=== PATIENT | female | born 1985 | race Caucasian/White ===

== ENCOUNTER → 2017-02-17 | Outpatient (CLI) | payer OTHER | END | disposition home or self-care (01) | LOC: MW.LAB 15:53 | PROVIDERS: ATTEND Internal Medicine Endocrinology, Diabetes & Metabolism | DX: E05.00 Thyrotoxicosis with diffuse goiter without thyrotoxic crisis or storm (principal) | CPT/HCPCS: 36415; 84439; 84443; 84481 ==

== ENCOUNTER 2017-08-29 13:17 | Emergency (ER) | payer BC ==
[2017-08-29] MEDS ORDERED: Sodium Chloride 0.9% 2.5 ML Syringe FLUSH PRN (14:01)
[2017-08-29] MEDS ORDERED: Sodium Chloride 0.9% 10 ML Syringe FLUSH PRN (14:01)
--- NOTE | 2017-08-29 14:02 | EDM.PDOC ---
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 She has a wedding in [place] next month and does not want to take the radiation prior to leaving the [facility]. Review of Systems: As per history of present illness and below otherwise all systems reviewed and negative. Past medical history: As per history of present illness and as reviewed below otherwise noncontributory. Surgical history: As per history of present illness and as reviewed below otherwise noncontributory. Social history: No reported history of drug or alcohol abuse. Family history: As per history of present illness and as reviewed below otherwise noncontributory. Physical exam: Alert and oriented female who is somewhat anxious HEENT: Atraumatic, normocehpalic, pupils reactive, negative for conjunctival pallor or scleral icterus, mucous membranes moist, throat clear, neck supple, nontender, trachea midline. Lungs: Clear to auscultation, breath sounds equal bilaterally, chest non tender. Heart: S1S2, regular, negative for clicks, rubs, or JVD. Abdomen: Soft, nondistended, nontender. Negative for masses or hepatossplenmegaly. Negative for costovertebral tenderness. Pelvis: Stable nontender. Genitourinary: Deferred. Rectal: Deferred Extremities: Atraumatic, negative for cords or calf pain. Neurovascular unremarkable. Neuro: Awake, alert, oriented. Cranial nerves II through XII unremarkable. Cerebellum unremarkable. Motor and sensory unremarkable throughout. Exam nonfocal. Diagnostics: [EKG CBC CMP8] Therapeutics: [] Impression: [Hyperthyroid reaction] Plan: []Discharged home Contact her white metal caster Lorazepam prescription written 0.25 mg one 3 times a day when necessary #10 no refill Definitive disposition and diagnosis as appropriate pending reevaluation and review of above. 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: Other OB/BYN History: gestational DM Musculoskeletal History: Reports: None Neurological History: Reports: None Psychiatric History: Reports: None Endocrine/Metabolic History: Reports: Hyperthyroidism Other Endocrine/Metabolic History: previous hx graves disease Hematologic History: Reports: None Immunologic History: Reports: None Oncologic (Cancer) History: Reports: None Dermatologic History: Reports: None - Infectious Disease History Infectious Disease History: Reports: Chicken Pox - Past Surgical History Head Surgeries/Procedures: Reports: None HEENT Surgical History: Reports: Eye Surgery, Tonsillectomy Female Surgical History: Reports: Section, LEEP Social & Family History - Family History Family Medical History: Noncontributory - Tobacco Use Smoking Status *Q: Former Smoker Years of Tobacco use: 5 Packs/Tins Daily: 0.5 Used Tobacco, but Quit: Yes Month Tobacco Last Used: 06/2015 Second Hand Smoke Exposure: No - Caffeine Use Caffeine Use: Reports: Coffee, Energy Drinks Caffeine Use Comment: took 2 cups of coffee in the morning - Recreational Drug Use Recreational Drug Use: No Drug Use in Last 12 Months: No ED ROS GENERAL - Review of Systems Review Of Systems: ROS reveals no pertinent complaints other than HPI. ED EXAM, GENERAL - Physical Exam Exam: See Below (See dictation) Course - Vital Signs Last Recorded V/S: Last Vital Signs Temp 37.0 C 08/29/17 13:25 Pulse 110 H 08/29/17 16:03 Resp 18 08/29/17 16:03 BP 139/62 08/29/17 16:03 Pulse Ox 97 08/29/17 16:03 - Orders/Labs/Meds Orders: Active Orders 24 hr Category Date Time Status EKG Documentation Completion [RC] STAT Care 08/29/17 14:01 Active COMPREHENSIVE METABOLIC PN,CMP [CHEM] Stat Lab 08/29/17 14:13 Results TSH [CHEM] Stat Lab 08/29/17 14:13 Results Saline Lock Insert [OM.PC] Stat Oth 08/29/17 14:01 Ordered Labs: Laboratory Tests 08/29/17 08/29/17 Range/Units 14:13 14:13 WBC 7.75 (4.0-11.0) K/uL RBC 4.67 (4.30-5.90) M/uL Hgb 14.6 (12.0-16.0) g/dL Hct 42.4 (36.0-46.0) % MCV 90.8 (80.0-98.0) fL MCH 31.3 (27.0-32.0) pg MCHC 34.4 (31.0-37.0) g/dL RDW Std Deviation 39.9 (28.0-62.0) fl RDW Coeff of Ming 12 (11.0-15.0) % Plt Count 208 (150-400) K/uL MPV 10.00 (7.40-12.00) fL Neut % (Auto) 71.8 (48.0-80.0) % Lymph % (Auto) 19.0 (16.0-40.0) % [place] % (Auto) 8.5 (0.0-15.0) % Eos % (Auto) 0.6 (0.0-7.0) % Baso % (Auto) 0.1 (0.0-1.5) % Neut # (Auto) 5.6 (1.4-5.7) K/uL Lymph # (Auto) 1.5 (0.6-2.4) K/uL [place] # (Auto) 0.7 (0.0-0.8) K/uL Eos # (Auto) 0.1 (0.0-0.7) K/uL Baso # (Auto) 0.0 (0.0-0.1) K/uL Nucleated RBC % 0.0 /100WBC Nucleated RBCs # 0 K/uL Sodium 139 (136-146) mmol/L Potassium 3.7 (3.5-5.1) mmol/L Chloride 107 (98-110) mmol/L Carbon Dioxide 22 (21-31) mmol/L BUN 13 (6.0-23.0) mg/dL Creatinine 0.6 (0.6-1.5) mg/dL Est Cr Clr Drug Dosing 109.11 mL/min Estimated GFR (MDRD) > 60.0 ml/min Glucose 118 H (60-110) mg/dL Calcium 9.8 (8.8-10.8) mg/dL Total Bilirubin 0.5 (0.1-1.5) mg/dL AST 23 (5-40) IU/L ALT 53 (8-54) IU/L Alkaline Phosphatase 80 (40-150) Total Protein 7.6 (6.0-8.0) g/dL Albumin 4.2 (3.5-5.0) g/dL Globulin 3.4 (2.0-3.5) g/dL Albumin/Globulin Ratio 1.2 L (1.3-2.8) Meds: Medications Discontinued Medications Generic Name Dose Route Start Last Admin Trade Name Freq PRN Reason Stop Dose Admin Lorazepam 0.5 mg 08/29/17 14:04 08/29/17 14:19 Ativan PO 08/29/17 14:05 0.5 mg ONETIME ONE Administration Sodium Chloride 10 ml 08/29/17 14:01 08/29/17 14:19 Saline Flush FLUSH 10 ml ASDIRECTED PRN Administration Keep Vein Open Sodium Chloride 2.5 ml 08/29/17 14:01 08/29/17 14:20 Saline Flush FLUSH 2.5 ml ASDIRECTED PRN Administration Keep Vein Open Departure - Departure Time of Disposition: 15:54 Disposition: Home, Self-Care 01 Condition: Good Clinical Impression: Hyperthyroidism - Discharge Information Instructions: Hyperthyroidism Referrals: Ana Cr NP [Primary Care Provider] - Forms: ED Department Discharge Additional Instructions: The following information is given to patients seen in the emergency department who are being discharged to home. This information is to outline your options for follow-up care. We provide all patients seen in our emergency department with a follow-up referral. The need for follow-up, as well as the timing and circumstances, are variable depending upon the specifics of your emergency department visit. If you don't have a primary care physician on staff, we will provide you with a referral. We always advise you to contact your personal physician following an emergency department visit to inform them of the circumstance of the visit and for follow-up with them and/or the need for any referrals to a consulting specialist. The emergency department will also refer you to a specialist when appropriate. This referral assures that you have the opportunity for followup care with a specialist. All of these measure are taken in an effort to provide you with optimal care, which includes your followup. Under all circumstances we always encourage you to contact your private physician who remains a resource for coordinating your care. When calling for followup care, please make the office aware that this follow-up is from your recent emergency room visit. If for any reason you are refused follow-up, please contact the [facility] emergency department at and asked to speak to the emergency department charge nurse. Prescription written for lorazepam 0.25 mg one 3 times a day when necessary #10 no refill Contact your white metal caster to let him know he has been in the ER here Return as needed for further concerns <Sharon Mckeon - Last Filed: 08/29/17 18:01> ED HPI GENERAL MEDICAL PROBLEM - History of Present Illness INITIAL COMMENTS - FREE TEXT/NARRATIVE: Please add to therapeutics above: Ativan IV
[2017-08-29] MEDS ORDERED: LORazepam 0.5 MG Tab PO ONE (14:04)
[2017-08-29 14:43] LABS: CHLORIDE,CL 107 mmol/L (98-110); SODIUM,NA 139 mmol/L (136-146)
[2017-08-29 16:29] VITALS: BP 139/62
== END 2017-08-29 16:03 | disposition home or self-care (01) ==
LOC: MW.ED 13:17
DX: E05.90 Thyrotoxicosis, unspecified without thyrotoxic crisis or storm (principal); Z87.891 Personal history of nicotine dependence
CPT/HCPCS: 36415; 80053; 84443; 85025; 93005; 99283; A9270

== ENCOUNTER 2017-09-16 00:39 | Emergency (ER) | payer BC ==
[2017-09-16] MEDS ORDERED: Alum Hydrox/Mag Hydrox/Simeth 15 ML, Lidocaine 2% 5 ML PO ONE ×2 (00:44)
--- NOTE | 2017-09-16 00:45 | EDM.PDOC ---
ED HPI GENERAL MEDICAL PROBLEM - General Chief Complaint: Chest Pain Stated Complaint: CHEST PAIN Time Seen by Provider: 09/16/17 00:44 - History of Present Illness INITIAL COMMENTS - FREE TEXT/NARRATIVE: HISTORY AND PHYSICAL: History of present illness: Patient 32-year-old female presents with a concern of substernal chest discomfort somewhat vaguely describes she noted tonight she denies associated shortness breath palpitations or diaphoresis there's been no nausea or vomiting. Review of systems: As per history of present illness and below otherwise all systems reviewed and negative. Past medical history: As per history of present illness and as reviewed below otherwise noncontributory. Surgical history: As per history of present illness and as reviewed below otherwise noncontributory. Social history: No reported history of drug or alcohol abuse. Family history: As per history of present illness and as reviewed below otherwise noncontributory. Physical exam: HEENT: Atraumatic, normocephalic, pupils reactive, negative for conjunctival pallor or scleral icterus, mucous membranes moist, throat clear, neck supple, nontender, trachea midline. Lungs: Clear to auscultation, breath sounds equal bilaterally, chest nontender. Heart: S1S2, regular, negative for clicks, rubs, or JVD. Abdomen: Soft, nondistended, nontender. Negative for masses or hepatosplenomegaly. Negative for costovertebral tenderness. Pelvis: Stable nontender. Genitourinary: Deferred. Rectal: Deferred. Extremities: Atraumatic, negative for cords or calf pain. Neurovascular unremarkable. Neuro: Awake, alert, oriented. Cranial nerves II through XII unremarkable. Cerebellum unremarkable. Motor and sensory unremarkable throughout. Exam nonfocal. Diagnostics: CBC CMP troponin chest x-ray EKG Therapeutics: IV O2 monitor GI cocktail Impression: #1 atypical chest pain Definitive disposition and diagnosis as appropriate pending reevaluation and review of above. 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: Other OB/BYN History: gestational DM Musculoskeletal History: Reports: None Neurological History: Reports: None Psychiatric History: Reports: None Endocrine/Metabolic History: Reports: Hyperthyroidism Other Endocrine/Metabolic History: previous hx graves disease Hematologic History: Reports: None Immunologic History: Reports: None Oncologic (Cancer) History: Reports: None Dermatologic History: Reports: None - Infectious Disease History Infectious Disease History: Reports: Chicken Pox - Past Surgical History Head Surgeries/Procedures: Reports: None HEENT Surgical History: Reports: Eye Surgery, Tonsillectomy Female Surgical History: Reports: Section, LEEP Social & Family History - Family History Family Medical History: Noncontributory - Tobacco Use Smoking Status *Q: Former Smoker Years of Tobacco use: 5 Packs/Tins Daily: 0.5 Used Tobacco, but Quit: Yes Month Tobacco Last Used: 06/2015 Second Hand Smoke Exposure: No - Caffeine Use Caffeine Use: Reports: Coffee, Energy Drinks Caffeine Use Comment: took 2 cups of coffee in the morning - Recreational Drug Use Recreational Drug Use: No Drug Use in Last 12 Months: No ED ROS GENERAL - Review of Systems Review Of Systems: ROS reveals no pertinent complaints other than HPI. ED EXAM, GENERAL - Physical Exam Exam: See Below (See dictation) Course - Vital Signs Last Recorded V/S: Last Vital Signs Temp 36.8 C 09/16/17 01:49 Pulse 88 09/16/17 01:49 Resp 17 09/16/17 01:49 BP 99/57 L 09/16/17 01:49 Pulse Ox 97 09/16/17 01:49 - Orders/Labs/Meds Orders: Active Orders 24 hr Category Date Time Status EKG 12 Lead [EKG Documentation Completion] [RC] STAT Care 09/16/17 00:44 Active Chest 1V Frontal [CR] Stat Exams 09/16/17 00:44 Taken Labs: Laboratory Tests 09/16/17 09/16/17 09/16/17 Range/Units 00:50 01:06 01:06 WBC 7.29 (4.0-11.0) K/uL RBC 4.51 (4.30-5.90) M/uL Hgb 14.0 (12.0-16.0) g/dL Hct 40.9 (36.0-46.0) % MCV 90.7 (80.0-98.0) fL MCH 31.0 (27.0-32.0) pg MCHC 34.2 (31.0-37.0) g/dL RDW Std Deviation 37.5 (28.0-62.0) fl RDW Coeff of Ming 12 (11.0-15.0) % Plt Count 217 (150-400) K/uL MPV 9.90 (7.40-12.00) fL Neut % (Auto) 55.7 (48.0-80.0) % Lymph % (Auto) 29.6 (16.0-40.0) % [place] % (Auto) 12.3 (0.0-15.0) % Eos % (Auto) 2.1 (0.0-7.0) % Baso % (Auto) 0.3 (0.0-1.5) % Neut # (Auto) 4.1 (1.4-5.7) K/uL Lymph # (Auto) 2.2 (0.6-2.4) K/uL [place] # (Auto) 0.9 H (0.0-0.8) K/uL Eos # (Auto) 0.2 (0.0-0.7) K/uL Baso # (Auto) 0.0 (0.0-0.1) K/uL INR 0.98 (0.86-1.11) Sodium 139 (136-146) mmol/L Potassium 3.8 (3.5-5.1) mmol/L Chloride 107 (98-110) mmol/L Carbon Dioxide 25 (21-31) mmol/L BUN 14 (6.0-23.0) mg/dL Creatinine 0.7 (0.6-1.5) mg/dL Est Cr Clr Drug Dosing 94.56 mL/min Estimated GFR (MDRD) > 60.0 ml/min Glucose 112 H (60-110) mg/dL Calcium 9.6 (8.8-10.8) mg/dL Total Bilirubin 0.3 (0.1-1.5) mg/dL AST 15 (5-40) IU/L ALT 18 (8-54) IU/L Alkaline Phosphatase 74 (40-150) Troponin I < 0.10 (0.0-0.29) NG/ML Total Protein 7.2 (6.0-8.0) g/dL Albumin 3.9 (3.5-5.0) g/dL Globulin 3.3 (2.0-3.5) g/dL Albumin/Globulin Ratio 1.2 L (1.3-2.8) HCG, Qual (NEG) 09/16/17 Range/Units 01:06 WBC (4.0-11.0) K/uL RBC (4.30-5.90) M/uL Hgb (12.0-16.0) g/dL Hct (36.0-46.0) % MCV (80.0-98.0) fL MCH (27.0-32.0) pg MCHC (31.0-37.0) g/dL RDW Std Deviation (28.0-62.0) fl RDW Coeff of Ming (11.0-15.0) % Plt Count (150-400) K/uL MPV (7.40-12.00) fL Neut % (Auto) (48.0-80.0) % Lymph % (Auto) (16.0-40.0) % [place] % (Auto) (0.0-15.0) % Eos % (Auto) (0.0-7.0) % Baso % (Auto) (0.0-1.5) % Neut # (Auto) (1.4-5.7) K/uL Lymph # (Auto) (0.6-2.4) K/uL [place] # (Auto) (0.0-0.8) K/uL Eos # (Auto) (0.0-0.7) K/uL Baso # (Auto) (0.0-0.1) K/uL INR (0.86-1.11) Sodium (136-146) mmol/L Potassium (3.5-5.1) mmol/L Chloride (98-110) mmol/L Carbon Dioxide (21-31) mmol/L BUN (6.0-23.0) mg/dL Creatinine (0.6-1.5) mg/dL Est Cr Clr Drug Dosing mL/min Estimated GFR (MDRD) ml/min Glucose (60-110) mg/dL Calcium (8.8-10.8) mg/dL Total Bilirubin (0.1-1.5) mg/dL AST (5-40) IU/L ALT (8-54) IU/L Alkaline Phosphatase (40-150) Troponin I (0.0-0.29) NG/ML Total Protein (6.0-8.0) g/dL Albumin (3.5-5.0) g/dL Globulin (2.0-3.5) g/dL Albumin/Globulin Ratio (1.3-2.8) HCG, Qual NEGATIVE (NEG) Meds: Medications Discontinued Medications Generic Name Dose Route Start Last Admin Trade Name Freq PRN Reason Stop Dose Admin Al Hydroxide/Mg Hydroxide 15 0 ml 09/16/17 00:44 09/16/17 00:58 ml/ Lidocaine HCl 5 ml PO 09/16/17 00:45 1 each ONETIME ONE Administration Departure - Departure Time of Disposition: 02:49 Disposition: Home, Self-Care 01 Condition: Good Clinical Impression: Atypical chest pain - Discharge Information Forms: ED Department Discharge Additional Instructions: The following information is given to patients seen in the emergency department who are being discharged to home. This information is to outline your options for follow-up care. We provide all patients seen in our emergency department with a follow-up referral. The need for follow-up, as well as the timing and circumstances, are variable depending upon the specifics of your emergency department visit. If you don't have a primary care physician on staff, we will provide you with a referral. We always advise you to contact your personal physician following an emergency department visit to inform them of the circumstance of the visit and for follow-up with them and/or the need for any referrals to a consulting specialist. The emergency department will also refer you to a specialist when appropriate. This referral assures that you have the opportunity for followup care with a specialist. All of these measure are taken in an effort to provide you with optimal care, which includes your followup. Under all circumstances we always encourage you to contact your private physician who remains a resource for coordinating your care. When calling for followup care, please make the office aware that this follow-up is from your recent emergency room visit. If for any reason you are refused follow-up, please contact the [facility] emergency department at and asked to speak to the emergency department charge nurse. Follow-up primary medical doctor 1-2 days return as needed as discussed - My Orders Last 24 Hours: My Active Orders 09/16/17 00:44 EKG 12 Lead [EKG Documentation Completion] [RC] STAT Chest 1V Frontal [CR] Stat - Assessment/Plan Last 24 Hours: My Active Orders 09/16/17 00:44 EKG 12 Lead [EKG Documentation Completion] [RC] STAT Chest 1V Frontal [CR] Stat
[2017-09-16 01:35] LABS: CHLORIDE,CL 107 mmol/L (98-110); SODIUM,NA 139 mmol/L (136-146)
[2017-09-16 03:22] VITALS: BP 104/61
--- NOTE | 2017-09-16 10:21 | CR ---
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 Site : 1985 Study: XRay Chest [id number] 1:03:22 AM Ordering Physician: Kaleb Leyva Final Report: INDICATION: CHEST PAIN TECHNIQUE: Chest radiograph 1 view COMPARISON: 07/11/2015 FINDINGS: Cardiovascular and mediastinum: The cardiac silhouette is normal in appearance and size. Mediastinum is within normal limits. Lungs and pleural spaces: Both lungs are unremarkable in appearance. No sign of pleural effusion. No pneumothorax is seen. Bones and soft tissues: No significant findings. IMPRESSION: 1. No acute cardiopulmonary disease seen. Dictated by: Sohan Eaton MD @ 09/16/2017 01:04:09 (Electronic Signature) Report Signed by Proxy. RACHEL
== END 2017-09-16 02:56 | disposition home or self-care (01) ==
LOC: MW.ED 00:39
DX: R07.2 Precordial pain (principal); Z87.891 Personal history of nicotine dependence
CPT/HCPCS: 71010; 80053; 84484; 84703; 85025; 85610; 93005; 99285; A9270; 99283

== ENCOUNTER 2020-04-15 14:17 | Emergency (ER) | payer BC, OTHER ==
[2020-04-15] MEDS ORDERED: Sodium Chloride 0.9% 2.5 ML Syringe FLUSH PRN (14:35)
[2020-04-15] MEDS ORDERED: Sodium Chloride 0.9% 10 ML Syringe FLUSH PRN (14:35)
[2020-04-15] MEDS ORDERED: Acetaminophen 500 MG Tab PO ONE (14:38)
[2020-04-15] MEDS ORDERED: Lactated Ringers 1,000 ML IV ONE (14:38)
--- NOTE | 2020-04-15 14:54 | EDM.PDOC ---
ED HPI GENERAL MEDICAL PROBLEM - General Chief Complaint: Fever Stated Complaint: FEVER OF 101.9, CHILLS, BODY ACHES, HEADACHE Time Seen by Provider: 04/15/20 14:28 Source of Information: Reports: Patient History Limitations: Reports: No Limitations - History of Present Illness INITIAL COMMENTS - FREE TEXT/NARRATIVE: 34-year-old female with history of hypothyroidism presents with fever, chills, generalized malaise, diffuse myalgia for 1 day. She also notes urinary frequency and urinary urgency. She also developed a mild frontal headache yesterday rated at 3/10, it quikcly resolved and currently she has no headache. She denies sore throat, cough, dysuria, rash, runny nose, nausea, vomiting, diarrhea, neck stiffness or neck discomfort. 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 ROS: A 10-point review of systems, other than pertinent positives and negatives as stated per HPI, is otherwise negative PHYSICAL EXAM General: AOx4, GCS = 15, No distress HEENT: dry mucous membrane Neck: supple, no meningismus, no Kernig or Brudzinski. Able to shake her head without any discomfort Cardiac: S1S2 tachycardia Respiratory: CTAB, no crackles or rales, no wheezing Abdomen: Soft, nontender, no rebound or guarding, nondistended, no pulsatile mass. Back: nontender, no CVAT Musculoskeletal: NVI distally, no deformity Neuro: No focal deficits, CN 2 - 12 WNL. MEDICAL DECISION MAKING: I reviewed the patients past medical records, lab and radiographic findings. I discussed the case with family members. My differential diagnosis included: sepsis, COVID, viral illness, UTI. Patient was febrile and tachycardic in the ER, she was given Tylenol, IV fluids with improvement of her symptoms, her urine was positive for UTI, consistent with her symptoms of urinary frequency and urgency. She was well-appearing, nontoxic. She had no headache, neck pain or neck stiffness, I do not suspect meningitis or the need for lumbar puncture. Her abdominal exam was soft, nontender, I do not suspect underlying abdominal etiology, her lungs were clear , chest x-ray was unremarkable, I do not suspect underlying pulmonary issues. She was tested for COVID and was ruled out in the ER. - Related Data Allergies Allergy/AdvReac Type Severity Reaction Status Date / Time No Known Allergies Allergy Verified 04/15/20 14:32 Home Meds: Home Meds cephALEXin [Keflex] 500 mg PO TID #30 capsule 04/15/20 [Rx] Past Medical History - Past Health History Medical/Surgical History: Denies Medical/Surgical History HEENT History: Reports: None Other HEENT History: wears glasses Cardiovascular History: Reports: None Respiratory History: Reports: None Gastrointestinal History: Reports: None Genitourinary History: Reports: None PIT MANAGER History: Reports: Other PIT MANAGER History: gestational DM Musculoskeletal History: Reports: None Neurological History: Reports: None Psychiatric History: Reports: None Endocrine/Metabolic History: Reports: Hyperthyroidism Other Endocrine/Metabolic History: previous hx graves disease, RADIOACTIVE IODINE IN 2017 Hematologic History: Reports: None Immunologic History: Reports: None Oncologic (Cancer) History: Reports: None Dermatologic History: Reports: None - Infectious Disease History Infectious Disease History: Reports: Chicken Pox - Past Surgical History Head Surgeries/Procedures: Reports: None HEENT Surgical History: Reports: Eye Surgery, Tonsillectomy Female Surgical History: Reports: Section, LEEP Social & Family History - Family History Family Medical History: Noncontributory - Tobacco Use Smoking Status *Q: Never Smoker - Caffeine Use Caffeine Use: Reports: Coffee, Energy Drinks Caffeine Use Comment: took 2 cups of coffee in the morning ED ROS GENERAL - Review of Systems Review Of Systems: See Below (see dictation) ED EXAM, GENERAL - Physical Exam Exam: See Below (see dictation) EKG INTERPRETATION EKG Interpretation Comments: 137 Bpm, sinus tachycardia, normal QRS interval, no STEMI. EKG and rhythm strip interpreted by me at 0301 Course - Vital Signs Last Recorded V/S: Last Vital Signs Temp 99.5 F 04/15/20 16:00 Pulse 116 H 04/15/20 16:00 Resp 18 04/15/20 16:00 BP 99/58 L 04/15/20 16:00 Pulse Ox 95 04/15/20 16:00 - Orders/Labs/Meds Orders: Active Orders 24 hr Category Date Time Status Cardiac Monitoring [RC] CONTINUOUS Care 04/15/20 14:36 Active EKG Documentation Completion [RC] STAT Care 04/15/20 14:35 Active Overnight Pulse Oximetry [RC] Click to Edit Care 04/15/20 14:37 Active CULTURE BLOOD [BC] Stat Lab 04/15/20 14:46 Results CULTURE BLOOD [BC] Stat Lab 04/15/20 14:55 Received CULTURE URINE [] Stat Lab 04/15/20 Ordered Lactated Ringers [Ringers, Lactated] 1,000 ml Med 04/15/20 16:15 Active IV ASDIRECTED Sodium Chloride 0.9% [Saline Flush] Med 04/15/20 14:35 Active 10 ml FLUSH ASDIRECTED PRN Sodium Chloride 0.9% [Saline Flush] Med 04/15/20 14:35 Active 2.5 ml FLUSH ASDIRECTED PRN Blood Culture x2 Reflex Set [OM.PC] Stat Oth 04/15/20 14:36 Ordered Pulse Oximetry Continuous Monitoring [OM.PC] Routine Oth 04/15/20 14:35 Ordered Saline Lock Insert [OM.PC] Stat Oth 04/15/20 14:36 Ordered Severe Sepsis Onset Time [OM.PC] Stat Ot 04/15/20 14:36 Ordered Medication Orders Lactated Ringer's (Ringers, Lactated) 1,000 mls @ 999 mls/hr IV ASDIRECTED ANH Last Admin: 04/15/20 16:05 Dose: 999 mls/hr Sodium Chloride (Saline Flush) 10 ml FLUSH ASDIRECTED PRN PRN Reason: Keep Vein Open Last Admin: 04/15/20 14:46 Dose: 10 ml Sodium Chloride (Saline Flush) 2.5 ml FLUSH ASDIRECTED PRN PRN Reason: Keep Vein Open Last Admin: 04/15/20 14:46 Dose: 2.5 ml Labs: Laboratory Tests 04/15/20 04/15/20 04/15/20 Range/Units 14:24 14:43 14:55 WBC (4.0-11.0) K/uL RBC (4.30-5.90) M/uL Hgb (12.0-16.0) g/dL Hct (36.0-46.0) % MCV (80.0-98.0) fL MCH (27.0-32.0) pg MCHC (31.0-37.0) g/dL RDW Std Deviation (28.0-62.0) fl RDW Coeff of Ming (11.0-15.0) % Plt Count (150-400) K/uL MPV (7.40-12.00) fL Neut % (Auto) (48.0-80.0) % Lymph % (Auto) (16.0-40.0) % [place] % (Auto) (0.0-15.0) % Eos % (Auto) (0.0-7.0) % Baso % (Auto) (0.0-1.5) % Neut # (Auto) (1.4-5.7) K/uL Lymph # (Auto) (0.6-2.4) K/uL [place] # (Auto) (0.0-0.8) K/uL Eos # (Auto) (0.0-0.7) K/uL Baso # (Auto) (0.0-0.1) K/uL Nucleated RBC % /100WBC Nucleated RBCs # K/uL INR 1.08 APTT 27.5 (18.6-31.3) SEC Lactate (0.20-2.00) mmol/L Sodium (136-145) mmol/L Potassium (3.5-5.1) mmol/L Chloride (98-107) mmol/L Carbon Dioxide (21.0-32.0) mmol/L BUN (7.0-18.0) mg/dL Creatinine (0.6-1.0) mg/dL Est Cr Clr Drug Dosing mL/min Estimated GFR (MDRD) ml/min Glucose (74-106) mg/dL Calcium (8.5-10.1) mg/dL Total Bilirubin (0.2-1.0) mg/dL AST (15-37) IU/L ALT (14-63) IU/L Alkaline Phosphatase (46-116) U/L Creatine Kinase (26-308) U/L Troponin I (0.000-0.056) ng/mL C-Reactive Protein (0.00-0.90) mg/dL Total Protein (6.4-8.2) g/dL Albumin (3.4-5.0) g/dL Globulin (2.6-4.0) g/dL Albumin/Globulin Ratio (0.9-1.6) Lipase (73-393) U/L Urine Color YELLOW Urine Appearance SLT CLOUDY Urine pH 6.0 (5.0-8.0) Ur Specific [place] 1.025 (1.001-1.035) Urine Protein 30 H (NEGATIVE) mg/dL Urine Glucose (UA) NEGATIVE (NEGATIVE) mg/dL Urine Ketones >=80 (NEGATIVE) mg/dL Urine Occult Blood MODERATE H (NEGATIVE) Urine Nitrite NEGATIVE (NEGATIVE) Urine Bilirubin SMALL H (NEGATIVE) Urine Ictotest NEGATIVE Urine Urobilinogen 0.2 (<2.0) EU/dL Ur Leukocyte Esterase SMALL H (NEGATIVE) Urine RBC 1-3 (0-2/HPF) Urine WBC 25-30 (0-5/HPF) Ur Epithelial Cells FEW (NONE-FEW) Urine Bacteria 2+ H (NEGATIVE) Urine Mucus LIGHT (NONE-MOD) SARS-CoV-2 RNA (RT-PCR) NEGATIVE (NEGATIVE) 04/15/20 04/15/20 04/15/20 Range/Units 14:55 14:55 14:55 WBC 13.17 H (4.0-11.0) K/uL RBC 4.42 (4.30-5.90) M/uL Hgb 14.1 (12.0-16.0) g/dL Hct 42.0 (36.0-46.0) % MCV 95.0 (80.0-98.0) fL MCH 31.9 (27.0-32.0) pg MCHC 33.6 (31.0-37.0) g/dL RDW Std Deviation 41.5 (28.0-62.0) fl RDW Coeff of Ming 12 (11.0-15.0) % Plt Count 178 (150-400) K/uL MPV 9.90 (7.40-12.00) fL Neut % (Auto) 87.1 H (48.0-80.0) % Lymph % (Auto) 4.3 L (16.0-40.0) % [place] % (Auto) 8.4 (0.0-15.0) % Eos % (Auto) 0.0 (0.0-7.0) % Baso % (Auto) 0.2 (0.0-1.5) % Neut # (Auto) 11.5 H (1.4-5.7) K/uL Lymph # (Auto) 0.6 (0.6-2.4) K/uL [place] # (Auto) 1.1 H (0.0-0.8) K/uL Eos # (Auto) 0.0 (0.0-0.7) K/uL Baso # (Auto) 0.0 (0.0-0.1) K/uL Nucleated RBC % 0.0 /100WBC Nucleated RBCs # 0 K/uL INR APTT (18.6-31.3) SEC Lactate 0.7 (0.20-2.00) mmol/L Sodium 137 (136-145) mmol/L Potassium 3.3 L (3.5-5.1) mmol/L Chloride 101 (98-107) mmol/L Carbon Dioxide 24.5 (21.0-32.0) mmol/L BUN 8 (7.0-18.0) mg/dL Creatinine 0.8 (0.6-1.0) mg/dL Est Cr Clr Drug Dosing 88.32 mL/min Estimated GFR (MDRD) > 60.0 ml/min Glucose 139 H (74-106) mg/dL Calcium 8.4 L (8.5-10.1) mg/dL Total Bilirubin 0.6 (0.2-1.0) mg/dL AST 20 (15-37) IU/L ALT 21 (14-63) IU/L Alkaline Phosphatase 50 (46-116) U/L Creatine Kinase 63 (26-308) U/L Troponin I < 0.050 (0.000-0.056) ng/mL C-Reactive Protein 5.60 H (0.00-0.90) mg/dL Total Protein 7.5 (6.4-8.2) g/dL Albumin 3.9 (3.4-5.0) g/dL Globulin 3.6 (2.6-4.0) g/dL Albumin/Globulin Ratio 1.1 (0.9-1.6) Lipase 67 L (73-393) U/L Urine Color Urine Appearance Urine pH (5.0-8.0) Ur Specific [place] (1.001-1.035) Urine Protein (NEGATIVE) mg/dL Urine Glucose (UA) (NEGATIVE) mg/dL Urine Ketones (NEGATIVE) mg/dL Urine Occult Blood (NEGATIVE) Urine Nitrite (NEGATIVE) Urine Bilirubin (NEGATIVE) Urine Ictotest Urine Urobilinogen (<2.0) EU/dL Ur Leukocyte Esterase (NEGATIVE) Urine RBC (0-2/HPF) Urine WBC (0-5/HPF) Ur Epithelial Cells (NONE-FEW) Urine Bacteria (NEGATIVE) Urine Mucus (NONE-MOD) SARS-CoV-2 RNA (RT-PCR) (NEGATIVE) Meds: Medications Generic Name Dose Route Start Last Admin Trade Name Fretahira PRN Reason Stop Dose Admin Lactated Ringer's 1,000 mls @ 999 mls/hr 04/15/20 16:15 04/15/20 16:05 Ringers, Lactated IV 999 mls/hr ASDIRECTED ANH Administration Sodium Chloride 10 ml 04/15/20 14:35 04/15/20 14:46 Saline Flush FLUSH 10 ml ASDIRECTED PRN Administration Keep Vein Open Sodium Chloride 2.5 ml 04/15/20 14:35 04/15/20 14:46 Saline Flush FLUSH 2.5 ml ASDIRECTED PRN Administration Keep Vein Open Discontinued Medications Generic Name Dose Route Start Last Admin Trade Name Fretahira PRN Reason Stop Dose Admin Acetaminophen 1,000 mg 04/15/20 14:38 04/15/20 14:44 Tylenol Extra Strength PO 04/15/20 14:39 1,000 mg ONETIME ONE Administration Lactated Ringer's 1,000 mls @ 999 mls/hr 04/15/20 14:38 04/15/20 14:44 Ringers, Lactated IV 04/15/20 15:38 999 mls/hr .BOLUS ONE Administration Ceftriaxone Sodium/Dextrose 1 50 mls @ 100 mls/hr 04/15/20 15:24 05/23/20 15: 33 gm/ Premix IV 04/15/20 15:53 100 mls/hr ONETIME ONE Administration - Re-Assessments/Exams Free Text/Narrative Re-Assessment/Exam: 04/15/20 14:55 Ordered IV fluids, Tylenol 1 g p.o. Free Text/Narrative Re-Assessment/Exam: 04/15/20 17:00 After IVF, rocephin and a prolonged observation period in the ER, she improved clinically and is stable for discharge. I performed a repeat examination and the patient has not demonstrated any new abnormal findings.Her tachycardia improved significantly, fever broke, and she was well appearing, nontoxic on my re-exam. She wished to go home as it was her daughter's birthday. I advised the patient to return to the ER for reevaluation if symptoms worsened, and to follow up with their PCP within 2-3 days. Departure - Departure Time of Disposition: 17:06 Disposition: Home, Self-Care 01 Condition: Good Clinical Impression: UTI (urinary tract infection) - Discharge Information *PRESCRIPTION DRUG MONITORING PROGRAM REVIEWED*: No *COPY OF PRESCRIPTION DRUG MONITORING REPORT IN PATIENT ALY: No Prescriptions: cephALEXin [Keflex] 500 mg PO TID #30 capsule Instructions: Antibiotic Medicine, Adult, [id number], Urinary Tract Infection , Adult, [id number] Referrals: PCP,None [Primary Care Provider] - Forms: ED Department Discharge Additional Instructions: The following information is given to patients seen in the emergency department who are being discharged to home. This information is to outline your options for follow-up care. We provide all patients seen in our emergency department with a follow-up referral. The need for follow-up, as well as the timing and circumstances, are variable depending upon the specifics of your emergency department visit. If you don't have a primary care physician on staff, we will provide you with a referral. We always advise you to contact your personal physician following an emergency department visit to inform them of the circumstance of the visit and for follow-up with them and/or the need for any referrals to a consulting specialist. The emergency department will also refer you to a specialist when appropriate. This referral assures that you have the opportunity for follow-up care with a specialist. All of these measure are taken in an effort to provide you with optimal care, which includes your follow-up. Sepsis Event Note - Evaluation Sepsis Screening Result: No Definite Risk - Focused Exam Vital Signs: Vital Signs Temp Temp Pulse Resp BP Pulse Ox 04/15/20 16:00 99.5 F 116 H 18 99/58 L 95 04/15/20 15:38 102 F H 04/15/20 15:31 131 H 16 109/61 94 L 04/15/20 14:44 102.8 F H 04/15/20 14:27 102.8 F H 152 H 18 115/67 97 Date Exam was Performed: 04/15/20 Time Exam was Performed: 16:55 - My Orders Last 24 Hours: My Active Orders 04/15/20 CULTURE URINE [RM] Stat 04/15/20 14:35 EKG Documentation Completion [RC] STAT Sodium Chloride 0.9% [Saline Flush] 10 ml FLUSH ASDIRECTED PRN Sodium Chloride 0.9% [Saline Flush] 2.5 ml FLUSH ASDIRECTED PRN Pulse Oximetry Continuous Monitoring [OM.PC] Routine 04/15/20 14:36 Cardiac Monitoring [RC] CONTINUOUS Blood Culture x2 Reflex Set [OM.PC] Stat Saline Lock Insert [OM.PC] Stat Severe Sepsis Onset Time [OM.PC] Stat 04/15/20 14:37 Overnight Pulse Oximetry [RC] Click to Edit 04/15/20 14:46 CULTURE BLOOD [BC] Stat 04/15/20 14:55 CULTURE BLOOD [BC] Stat 04/15/20 16:15 Lactated Ringers [Ringers, Lactated] 1,000 ml IV ASDIRECTED - Assessment/Plan Last 24 Hours: My Active Orders 04/15/20 CULTURE URINE [RM] Stat 04/15/20 14:35 EKG Documentation Completion [RC] STAT Sodium Chloride 0.9% [Saline Flush] 10 ml FLUSH ASDIRECTED PRN Sodium Chloride 0.9% [Saline Flush] 2.5 ml FLUSH ASDIRECTED PRN Pulse Oximetry Continuous Monitoring [OM.PC] Routine 04/15/20 14:36 Cardiac Monitoring [RC] CONTINUOUS Blood Culture x2 Reflex Set [OM.PC] Stat Saline Lock Insert [OM.PC] Stat Severe Sepsis Onset Time [OM.PC] Stat 04/15/20 14:37 Overnight Pulse Oximetry [RC] Click to Edit 04/15/20 14:46 CULTURE BLOOD [BC] Stat 04/15/20 14:55 CULTURE BLOOD [BC] Stat 04/15/20 16:15 Lactated Ringers [Ringers, Lactated] 1,000 ml IV ASDIRECTED
--- NOTE | 2020-04-15 15:03 | CR ---
Chest: Portable view of the chest was obtained. Comparison: Prior chest x-ray of 09/16/17. Heart size and mediastinum are within normal limits for portable technique. Lungs show no acute parenchymal change. Bony structures are unremarkable. Impression: 1. Nothing acute is appreciated on portable chest x-ray. Diagnostic code #1 This report was dictated in MDT
[2020-04-15] MEDS ORDERED: cefTRIAXone 1 GM in Sodium Chloride 0.9% 50 ML IV ONE (15:22)
[2020-04-15] MEDS ORDERED: cefTRIAXone 1 GM in Premix Bag 1 BAG IV ONE (15:24)
[2020-04-15 15:30] LABS: BLOOD UREA NITROGEN,BUN 8 mg/dL (7.0-18.0); CARBON DIOXIDE,CO2 24.5 mmol/L (21.0-32.0); CHLORIDE,CL 101 mmol/L (98-107); GLUCOSE RANDOM 139 mg/dL (74-106); LIPASE 67 U/L (73-393); POTASSIUM,K 3.3 mmol/L (3.5-5.1); SODIUM,NA 137 mmol/L (136-145)
[2020-04-15] MEDS ORDERED: Lactated Ringers 1,000 ML IV SCH (16:15)
[2020-04-15 17:08] VITALS: BP 96/51; PULSE 103
== END 2020-04-15 17:18 | disposition home or self-care (01) ==
LOC: MW.ED 14:17 → EEVIPCON 14:17 → MW.ED 17:18
DX: N39.0 Urinary tract infection, site not specified (principal)
CPT/HCPCS: 36415; 71045; 80053; 81001; 82550; 83605; 83690; 84484; 85025; 85610; 85730; 86140; 87040; 87086; 87088; 87186; 87635; 93005; 96365; 99284; A9270; J0696; J7120; 99283; U0002

== ENCOUNTER 2024-09-28 10:08 | Emergency (ER) | payer BC ==
[2024-09-28] MEDS ORDERED: Sodium Chloride 0.9% 10 ML Syringe FLUSH PRN (10:28)
[2024-09-28] MEDS ORDERED: Sodium Chloride 0.9% 2.5 ML Syringe FLUSH PRN (10:28)
[2024-09-28 11:27] LABS: BASOPHILS ABSOLUTE AUTO 0.05 K/uL (0.00-0.20); BASOPHILS PERCENT AUTO 0.6 % (0.0-1.0); EOSINOPHILS ABSOLUTE AUTO 0.08 K/uL (0.00-0.45); HEMATOCRIT 44.4 % (37.0-47.0); HEMOGLOBIN 15.1 g/dL (12.0-16.0); IMMATURE GRAN ABSOLUTE AUTO 0.05 K/uL (0.00-0.05); IMMATURE GRAN PERCENT AUTO 0.6 % (0.0-0.4); LYMPHOCYTES ABSOLUTE AUTO 1.61 K/uL (1.00-4.80); LYMPHOCYTES PERCENT AUTO 19.6 % (24.0-44.0); MEAN CORPUSCULAR HEMOGLOBIN 31.6 pg (28.0-32.0); MEAN CORPUSCULAR VOLUME 92.9 fL (83.0-99.0); MEAN PLATELET VOLUME 9.3 fL (9.4-12.3); MONOCYTES ABSOLUTE AUTO 0.62 K/uL (0.00-0.80); MONOCYTES PERCENT AUTO 7.5 % (0.0-8.0); NEUTROPHILS ABSOLUTE AUTO 5.81 K/uL (1.80-7.70); NEUTROPHILS PERCENT AUTO 70.7 % (41.0-71.0); PLATELET COUNT,PLT 227 K/uL (150-400); RED BLOOD CELL COUNT 4.78 M/uL (4.10-5.30); WHITE BLOOD CELL COUNT,WBC 8.22 K/uL (3.9-11.3)
[2024-09-28 11:30] LABS: APPEARANCE,URINE CLEAR; BILIRUBIN,URINE NEGATIVE (NEGATIVE); GLUCOSE,URINE NEGATIVE (NEGATIVE); KETONES,URINE NEGATIVE (NEGATIVE); LEUKOCYTE ESTERASE,URINE NEGATIVE (NEGATIVE); NITRITE,URINE POSITIVE (NEGATIVE); OCCULT BLOOD,URINE NEGATIVE (NEGATIVE); PH,URINE 6.5 (5.0-8.0); PROTEIN,URINE NEGATIVE (NEGATIVE); UROBILINOGEN,URINE 0.2 EU/dL (<2.0)
[2024-09-28 11:50] LABS: COLOR,URINE STRAW
[2024-09-28 12:01] LABS: BACTERIA,URINE FEW (NEGATIVE); EPITHELIAL CELLS,URINE FEW (NONE-FEW); RBC,URINE 0-1 (0-2/HPF)
[2024-09-28 12:02] LABS: A/G RATIO 1.1 (0.9-1.6); ALBUMIN 4.2 g/dL (3.4-5.0); BILIRUBIN TOTAL 0.3 mg/dL (0.2-1.0); CALCIUM 9.5 mg/dL (8.5-10.1); CARBON DIOXIDE,CO2 28.2 mmol/L (21.0-32.0); CREATININE 0.8 mg/dL (0.6-1.0); EST CRCL DRUG DOSING (CG) 77.33 mL/min; POTASSIUM,K 3.8 mmol/L (3.5-5.1); PROTEIN TOTAL,TP 8.1 g/dL (6.4-8.2)
[2024-09-28] MEDS: Sodium Chloride 0.9% 1,000 ML IV ONE (12:03)
[2024-09-28] MEDS: Iopamidol 755 MG/ML 500 ML Multipack Bottle IVPUSH STA (12:53)
[2024-09-28 13:34] VITALS: BP 123/84; PULSE 89
== END 2024-09-28 13:32 | disposition home or self-care (01) ==
LOC: MW.ED 10:08
DX: N39.0 Urinary tract infection, site not specified (principal); Z79.899 Other long term (current) drug therapy; Z75.8 Other problems related to medical facilities and other health care
CPT/HCPCS: 36415; 74177; 80053; 81001; 81025; 83690; 85025; 87086; 87088; 87186; 96360; 99284; J7030; Q9967

== ENCOUNTER 2025-10-03 10:44 | Emergency (ER) | payer BC ==
[2025-10-03 11:25] LABS: APPEARANCE,URINE CLEAR; GLUCOSE,URINE NEGATIVE (NEGATIVE); OCCULT BLOOD,URINE NEGATIVE (NEGATIVE)
[2025-10-03 11:40] LABS: BASOPHILS ABSOLUTE AUTO 0.05 K/uL (0.00-0.20); BASOPHILS PERCENT AUTO 0.8 % (0.0-1.0); EOSINOPHILS ABSOLUTE AUTO 0.11 K/uL (0.00-0.45); EOSINOPHILS PERCENT AUTO 1.8 % (0.0-6.0); IMMATURE GRAN ABSOLUTE AUTO 0.02 K/uL (0.00-0.05); IMMATURE GRAN PERCENT AUTO 0.3 % (0.0-0.4); LYMPHOCYTES ABSOLUTE AUTO 1.65 K/uL (1.00-4.80); LYMPHOCYTES PERCENT AUTO 26.4 % (24.0-44.0); MEAN PLATELET VOLUME 9.5 fL (9.4-12.3); MONOCYTES ABSOLUTE AUTO 0.49 K/uL (0.00-0.80); MONOCYTES PERCENT AUTO 7.8 % (0.0-8.0); NEUTROPHILS ABSOLUTE AUTO 3.93 K/uL (1.80-7.70); NEUTROPHILS PERCENT AUTO 62.9 % (41.0-71.0); NRBC ABSOLUTE 0.00 K/uL (0.00-0.02); NRBC PERCENT 0.0 /100WBC (0.0-0.2); PLATELET COUNT,PLT 228 K/uL (150-400); RED BLOOD CELL COUNT 4.57 M/uL (4.10-5.30); WHITE BLOOD CELL COUNT,WBC 6.25 K/uL (3.9-11.3)
[2025-10-03 12:18] LABS: A/G RATIO 1.1 (0.9-1.6); ALANINE AMINOTRANSFERASE,ALT 23.0 IU/L (14-63); ASPARTATE AMNIOTRANSFERASE,AST 21.0 IU/L (15-37); BILIRUBIN TOTAL 0.4 mg/dL (0.2-1.0); BLOOD UREA NITROGEN,BUN 10.0 mg/dL (7.0-18.0); CARBON DIOXIDE,CO2 30.0 mmol/L (21.0-32.0); CHLORIDE,CL 102.0 mmol/L (98-107); CREATININE 0.7 mg/dL (0.6-1.0); EST CRCL DRUG DOSING (CG) 87.49 mL/min; GLUCOSE RANDOM 130.0 mg/dL (74-106); POTASSIUM,K 3.8 mmol/L (3.5-5.1); PROTEIN TOTAL,TP 8.1 g/dL (6.4-8.2); SODIUM,NA 140.0 mmol/L (136-145); TSH ULTRASENSITIVE 2.51 uIU/mL (0.36-3.74)
[2025-10-03 12:19] LABS: ESTIMATED GFR 111.0 mL/min (>60)
[2025-10-03] MEDS: Iopamidol 755 MG/ML 500 ML Multipack Bottle IVPUSH STA (12:41)
[2025-10-03 14:15] VITALS: BP 114/66; PULSE 101
== END 2025-10-03 14:27 | disposition home or self-care (01) ==
LOC: MW.ED 10:44
DX: R42 Dizziness and giddiness (principal); Z79.899 Other long term (current) drug therapy; Z75.3 Unavailability and inaccessibility of health-care facilities
CPT/HCPCS: 36415; 70496; 70498; 70551; 80053; 81003; 81025; 83735; 84443; 85025; 87428; 93005; 96360; 99284; A9270; J7030; Q9967; 93010